=== PATIENT | male | born 1980 | race Caucasian/White ===

== ENCOUNTER 2016-08-04 14:26 | Emergency (ER) | payer OTHER ==
[~2016-08-04] VITALS: Ht 180.3 cm; Wt 79.0 kg
[2016-08-04 14:29] VITALS: BP 129/80; PULSE 108; RESP 15; TEMP 98.9; O2SAT 98
[2016-08-04] MEDS ORDERED: BUPIVACAINE HCL PF 0.5% 10 ML VIAL INFIL ONE (15:00)
[2016-08-04] MEDS ORDERED: LIDOCAINE HCL 1% 50 ML VIAL INFIL ONE (15:00)
[2016-08-04] MEDS ORDERED: BACT800T5 PO (15:02)
--- NOTE | 2016-08-04 15:09 | PD ---
HPI Chief Complaint: Laceration/Skin Injury Time Seen by Provider: 15:03 Travel History International Travel<30 days: No Contact w/Intl Traveler<30days: No Traveled to known affect area: No History of Present Illness HPI 36-year-old male that presents to the ED for evaluation of laceration to the left index finger will working with a new blade. Per patient this happened at work but per patient is is not worker's comp. 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 He denies any other injury. He denies any numbness, tilling, weakness. Per patient is up-to-date with his tetanus. He is able to move the finger fully. He denies any other injury. She states that the blade was brand-new. He denies any active bleeding. He denies any allergies to medication. He states that his pain currently is 4 out of 10 and hurts more when he moves it. [facility] Social History Alcohol Use: Yes Tobacco Use: Yes Substance Use: No Allergies-Medications (Allergen,Severity, Reaction): Coded Allergies: No Known Allergies (Unverified , 08/04/16) Reported Meds & Prescriptions Reported Meds & Active Scripts Active Bactrim DS (Sulfamethoxazole-Trimethoprim) 800-160 Mg Tab 1 Tab PO BID 7 Days Review of Systems Except as stated in HPI: all other systems reviewed are Neg Physical Exam Narrative GENERAL: SKIN: Warm and dry. HEAD: Atraumatic. Normocephalic. EYES: Pupils equal and round. No scleral icterus. No injection or drainage. ENT: No nasal bleeding or discharge. Mucous membranes pink and moist. NECK: Trachea midline. No JVD. CARDIOVASCULAR: Regular rate and rhythm. RESPIRATORY: No accessory muscle use. Clear to auscultation. Breath sounds equal bilaterally. GASTROINTESTINAL: Abdomen soft, non-tender, nondistended. Hepatic and splenic margins not palpable. MUSCULOSKELETAL: Extremities without clubbing, cyanosis, or edema. No obvious deformities. Full range of motion of all fingers including the left index finger. Patient has a superficial skin avulsion still attached which is about 1 cm and V-shaped. Well approximated but it opens when patient flexes his finger. Patient able to move the finger fully. No neurological deficits. Good capillary refill. Sensation intact bilaterally. NEUROLOGICAL: Awake and alert. No obvious cranial nerve deficits. Motor grossly within normal limits. Five out of 5 muscle strength in the arms and legs. Normal speech. PSYCHIATRIC: Appropriate mood and affect; insight and judgment normal. Data Data Last Documented VS Vital Signs Date Time Temp Pulse Resp B/P Pulse Ox O2 Delivery O2 Flow Rate FiO2 08/04/16 14:29 98.9 108 15 129/80 98 Orders Wound Care (08/04/16 14:49) Bupivacaine Pf 0.5% Inj (Marcaine Pf 0.5 (08/04/16 15:00) Lidocaine 1% Inj (50 Ml) (Xylocaine 1% I (08/04/16 15:00) MDM Medical Decision Making Medical Screen Exam Complete: Yes Emergency Medical Condition: Yes Medical Record Reviewed: Yes Differential Diagnosis Laceration versus abrasion versus skin tear Narrative Course 36-year-old male that presents to the ED for evaluation laceration to the left hand. Patient was properly examined and was found to have signs and symptoms consistent with laceration. After splint procedure to the patient and she agreed to it laceration was repaired as stated in procedure note. Patient was told to get sutures removed in 14 days. Wound care was endorsed. Patient was given prescription for Bactrim for 5 days to cover for bacterial infection secondary to wound. Patient was told to see ED for any worsening symptoms. Follow with PCP. Procedures Procedure Narrative LACERATION LOCATION: left 2nd digit LENGTH: V shaped 1 cm NUMBER OF STITCHES/DENY: 3 sutures REPAIR: The area of the laceration was prepped with Betadine and sterilely draped. The laceration was infiltrated with 1% Xylocaine for digital block. The wound was copiously irrigated and explored without evidence of foreign body , tendon injury or neurovascular injury. The wound was closed using 4-0 Prolene. This was a 1 layer repair. A sterile dressing was applied. The patient was advised to keep the dressing clean and dry. Patient tolerated the procedure well. Diagnosis Primary Impression: Laceration of finger Qualified Code: S61.219A - Laceration of finger, initial encounter Patient Instructions: General Instructions Additional Instructions: Wound care daily with soap and water. You can apply bandaid if needed. Neosporyn or OTC antibiotic ointment to area as needed twice a day for at least 2 weeks to help with scarring and prevent infection. Meoderma OTC for scarring if needed. Avoid sun exposure for 2 months as the sun could make scar darker and more noticeable. Get sutures removed in 14 days. See ED if worst. Med/Other Pt SpecificInfo: Prescription(s) given Scripts Sulfamethoxazole-Trimethoprim (Bactrim DS)800-160 Mg Tab1 Tab PO BID 7 Days Prov:Charity Rivera MD 08/04/16 Disposition: 01 DISCHARGE HOME Condition: Stable Tre Jesus Aug 04, 2016 15:08
== END 2016-08-04 15:54 | disposition home or self-care (01) ==
LOC: NEPD 14:26
DX: S61.211A Laceration without foreign body of left index finger without damage to nail, initial encounter (principal); Z72.0 Tobacco use; W45.8XXA Other foreign body or object entering through skin, initial encounter
CPT/HCPCS: 12001